=== PATIENT | male | born 1970 | race Caucasian/White ===

== ENCOUNTER → 2021-04-12 14:22 | Outpatient (BNVA) | payer OTHER, SELFPAY | PROVIDERS: PCP Family Medicine; Visit Provider Nurse Practitioner Family | DX: R33.9 Retention of urine, unspecified (principal); N39.0 Urinary tract infection, site not specified; N40.1 Benign prostatic hyperplasia with lower urinary tract symptoms; N13.8 Other obstructive and reflux uropathy; N20.0 Calculus of kidney | CPT/HCPCS: 81003 ==

== ENCOUNTER 2021-06-15 14:00 | Outpatient (CLI) | payer OTHER, SELFPAY ==
--- NOTE | 2021-06-15 14:00 | XR_ITS ---
WS: [id number], AP view, 06/15/2021 Clinical Data: RENAL STONE Comparison: CT abdomen and pelvis, 03/14/2021. Findings: No abnormal intraabdominal masses or calcifications are seen. There is no dilatated small bowel or ev idence of obstruction. There are calcifications in the true pelvis. Air in the stomach, air in the colon and fecal material in colon obscure detail over both kidneys. XR/XR KUB [id number] Impression: Negative KUB.
== END 2021-06-15 14:01 | disposition home or self-care (01) ==
PROVIDERS: PCP Family Medicine; Visit Provider Urology
DX: N20.0 Calculus of kidney (principal)
CPT/HCPCS: 74018; 81003

== ENCOUNTER → 2021-11-10 08:44 | Outpatient (BNVA) | payer OTHER, SELFPAY | PROVIDERS: PCP Family Medicine; Referring Provider Family Medicine; Visit Provider Podiatrist Foot & Ankle Surgery | DX: M19.071 Primary osteoarthritis, right ankle and foot (principal); M79.671 Pain in right foot | CPT/HCPCS: 73630 ==